=== PATIENT | female | born 1945 | race Caucasian/White ===

== ENCOUNTER 2019-08-27 16:31 | Emergency (ER) | payer OTHER ==
[~2019-08-27] VITALS: Ht 149.9 cm; Wt 54.4 kg
[2019-08-27 16:34] VITALS: Ht 149.9 cm; Wt 54.4 kg
[2019-08-27 17:55] LABS: BASOPHIL % 0.1 % (0-2); PLATELET COUNT 364 x10^3mcL (130-400); RED CELL DISTRIBUTION WIDTH 14.5 % (11.5-14.5)
[2019-08-27 18:05] LABS: CALCIUM 8.6 mg/dL (8.5-10.1); CARBON DIOXIDE 22.2 mmol/L (21-32); CHLORIDE SERUM 99 mmol/L (98-107); CREATININE SERUM 0.9 mg/dL (0.6-1.0); GLUCOSE SERUM 77 mg/dL (74-106); POTASSIUM SERUM 3.6 mmol/L (3.5-5.1); SODIUM SERUM 132 mmol/L (136-145)
[2019-08-27 18:20] LABS: ALKALINE PHOSPHATASE 99 U/L (46-116); ALT/SGPT 14 U/L (14-59); AST/SGOT 25 U/L (15-37); BILIRUBIN TOTAL 0.79 mg/dL (0.20-1.00); LIPASE 27 IU/L (73-393)
[2019-08-27 18:22] LABS: ALBUMIN 2.1 g/dL (3.4-5.0); TOTAL PROTEIN, SERUM 5.8 g/dL (6.4-8.2)
[2019-08-27 19:01] LABS: rbc morphology (normal/abnorm) ABNORMAL (NORMAL)
[2019-08-27 19:11] LABS: microscopic required? YES; urine erythrocyte NEGATIVE (NEGATIVE)
[2019-08-27 22:11] VITALS: BP 114/39
== END 2019-08-27 22:21 | disposition short-term general hospital (02) ==
LOC: ED 16:31
PROVIDERS: Emergency Medicine
DX: K52.9 Noninfective gastroenteritis and colitis, unspecified (principal); D72.829 Elevated white blood cell count, unspecified; I10 Essential (primary) hypertension; E11.9 Type 2 diabetes mellitus without complications; Z86.79 Personal history of other diseases of the circulatory system
CPT/HCPCS: J2405; J2543; J3010; J3490; J7030; Q0092